=== PATIENT | female | born 1990 | race Caucasian/White ===

== ENCOUNTER 2024-06-12 00:27 | Inpatient (IN) ==
[2024-06-12] MEDS ORDERED: Lidocaine 1% VIAL 10 MG/ML 30 ML VIAL INJ PRN (00:47)
[2024-06-12] MEDS ORDERED: Lactated Ringers 1000 ml BAG 1,000 ML IV SCH (01:00)
[2024-06-12] MEDS: Lactated Ringers 1000 ml BAG 1,000 ML IV ONE (02:05)
[2024-06-12] MEDS ORDERED: Oxytocin in LR 20,000 MILLI.UNIT/1,000 ML BAG IV ONE (02:19)
[2024-06-12 02:21] LABS: ABS Lymphocytes 1.4 10^3/uL (1.0-4.8); ABS Monocytes 0.7 10^3/uL (0.0-0.9); ABS Neutrophils 13.7 10^3/uL (1.5-7.6); ABS Nucleated RBC 0.01 10^3/ul; Eosinophil % 0.1 %; Hematocrit 39.9 % (35-45); Hemoglobin 14.5 g/dL (11.5-14.3); Lymphocyte % 9.1 %; Mean Corpuscular Hemoglobin 31.8 pg (27-33); Mean Corpuscular Hgb Conc 36.3 g/dL (31-36); Mean Corpuscular Volume 87.7 fL (80-97); Mean Platelet Volume 9.4 fL (7.5-11.2); Platelet Count 170 10^3/uL (150-450); Red Blood Count 4.55 10^6/uL (3.63-4.92); White Blood Count 15.9 10^3/uL (3.8-11.8)
[2024-06-12] MEDS ORDERED: Dibucaine 1% OINT 28.35 GM TUBE PR PRN (03:47)
[2024-06-12] MEDS ORDERED: Witch Hazel PAD JAR TOPICAL PRN (03:47)
[2024-06-12] MEDS ORDERED: Glycerin ADULT 2.4 gm SUPP PR PRN (03:47)
[2024-06-12] MEDS: Oxytocin in LR 20,000 MILLI.UNIT/1,000 ML BAG IV SCH (03:50)
[2024-06-12] MEDS: Buffered Lidocaine 1% SYRIN 1 ml INTRADERM ONE (11:52)
[2024-06-12 13:09] LABS: Urine Benzodiazepine Screen None Detected (None Detect); Urine Cannabinoids Screen None Detected (None Detect); Urine Opiates Screen None Detected (None Detect)
[2024-06-13 06:38] LABS: ABS Eosinophils 0.2 10^3/uL (0.0-0.5); ABS Monocytes 0.9 10^3/uL (0.0-0.9); ABS Neutrophils 8.3 10^3/uL (1.5-7.6); Eosinophil % 1.8 %; Hematocrit 31.4 % (35-45); Hemoglobin 11.3 g/dL (11.5-14.3); Mean Corpuscular Hemoglobin 32.5 pg (27-33); Mean Corpuscular Volume 90.3 fL (80-97); Platelet Count 143 10^3/uL (150-450); Red Blood Count 3.48 10^6/uL (3.63-4.92); Red Cell Distribution Width 13.2 % (12-17); White Blood Count 12.6 10^3/uL (3.8-11.8)
[2024-06-13 07:52] VITALS: BP 120/69
[2024-06-13] MEDS: Measles, Mumps,Rubella VACC 0.5 ML/VIAL SUBCUT ONE ×2 (14:40→14:46)
== END 2024-06-13 16:43 | disposition home or self-care (01) | DRG 560 ==
LOC: MCHOBOUT 00:27 → MCHOB 00:29
PROVIDERS: ADMIT Midwife; ATTEND Midwife